=== PATIENT | female | born 1955 | race Caucasian/White ===

== ENCOUNTER → 2018-06-24 08:42 | Outpatient (CLI) | payer OTHER, SELFPAY ==
--- NOTE | 2018-06-24 08:43 | DI.MG.S_ITS ---
BILATERAL DIGITAL SCREENING MAMMOGRAM 3D/2D WITH CAD: 06/24/2018 CLINICAL: Routine screening. Comparison is made to exam dated: 12/17/2015 mammogram - [facility]. The tissue of both breasts is heterogeneously dense. This may lower the sensitivity of mammography. Current study was also evaluated with a Computer Aided Detection (CAD) system. No significant masses, calcifications, or other findings are seen in either breast. There has been no significant interval change. IMPRESSION: NEGATIVE There is no mammographic evidence of malignancy. A 1 year screening mammogram is recommended. This exam was interpreted at Station ID: [id number]. NOTE: For mammograms, a report in lay terms will be sent to the patient. Approximately 15% of breast malignancies will not be visualized mammographically. In the management of a palpable breast mass, a negative mammogram must not discourage biopsy of a clinically suspicious lesion. Electronically Signed By: Remberto knowles/andres:06/25/2018 07:48:24 letter sent: Normal Exam ACR BI-RADS Category 1: Negative 3341F
== END ==
PROVIDERS: PCP Family Medicine; Visit Provider Family Medicine
DX: Z12.31 Encounter for screening mammogram for malignant neoplasm of breast (principal)
CPT/HCPCS: 77063; 77067

== ENCOUNTER 2018-06-30 18:19 | Emergency (ER) | payer OTHER, SELFPAY ==
[2018-06-30 18:46] VITALS: BP 149/81; PULSE 80; RESP 18; TEMP 36.7; O2SAT 100
[2018-06-30 20:11] VITALS: BP 147/97; PULSE 82; RESP 18; O2SAT 100
--- NOTE | 2018-06-30 20:23 | ED.HA ---
HPI - Headache General Chief Complaint: Headache Stated Complaint: PAIN OVER RIGHT EYE/SENT BY WALK IN Time Seen by Provider: 06/30/18 20:19 Source: patient and family Mode of arrival: ambulatory Limitations: no limitations History of Present Illness HPI Narrative: Patient is a 62-year-old female who presents with all right eye headache ongoing for the last 10 days. She says she notices it mostly at daytime during work. 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 She feels like it is numb. She denies any blurry vision or double vision. She has been taking some ibuprofen for it which she says does not really help. She does not notice it at night. She denies any weakness the numbness or tingling. No rash. She does not typically get headaches. Tonight it seemed to be continually bothering her and she wanted to know what is going on. Initially seen at the walk-in clinic and referred to the ED for further evaluation and workup. MD Complaint: headache Related Data Home Medications Medication Instructions Recorded Confirmed aspirin #0 07/13/17 06/30/18 cyanocobalamin (vitamin B-12) 1,000 mcg IM MONTHLY #0 07/13/17 06/30/18 [Vitamin B-12] Previous Rx's Medication Instructions Recorded estradiol [Vagifem] 10 mcg VG QWEEK #60 tab 07/13/17 bupropion HCl 75 mg PO BID #120 tab 01/01/18 triamcinolone acetonide 0.1 % 1 applictn TOP DAILY #15 gram 04/05/18 topical cream cyclobenzaprine 10 mg tablet 10 mg PO TID PRN #30 tab 05/30/18 meloxicam 15 mg tablet 15 mg PO DAILY #30 tab 05/30/18 Allergies Allergy/AdvReac Type Severity Reaction Status Date / Time Penicillins [PENICILLINS] Allergy Unknown Verified 05/31/18 08:39 Sulfa (Sulfonamide Allergy Unknown Verified 05/31/18 08:39 Antibiotics) [SULFA (SULFONAMIDE ANTIBIOTICS)] Review of Systems Review of Systems All systems reviewed & are unremarkable except as noted in HPI and below Constitutional Denies chills, Denies fever(s), Denies lethargy and Denies weakness Eyes Reports as per HPI Cardiovascular Denies chest pain, Denies irregular heart rhythm, Denies lightheadedness, Denies palpitations, Denies dyspnea, Denies dyspnea on exertion and Denies orthopnea Respiratory Denies cough, Denies dyspnea, Denies dyspnea on exertion and Denies wheezing Gastrointestinal Gastrointestinal: Denies abdominal pain, Denies change in bowel habits, Denies diarrhea, Denies nausea and Denies vomiting Musculoskeletal Denies back pain, Denies muscle weakness, Denies numbness and Denies tingling Integumentary/Breasts Denies pruritus, Denies erythema, Denies rash and Denies wounds Neurologic Denies numbness, Denies tingling and Denies weakness Endocrine Denies palpitations Allergic/Immunologic Denies wheezing FORMERLY [facility] Medical History Anxiety (Chronic) Chronic cough (Chronic) Crohn's disease (Chronic 1971) Hearing loss (Chronic 2008) Psoriasis (Chronic) Shoulder pain (Chronic 1994) Tinnitus (Chronic) Kidney stones (Resolved 1999) Plantar warts (Resolved) Surgical History Anesthesia complication (Resolved) History of bowel resection (Resolved 1992) History of extraction of renal calculus (Resolved) Status post delivery (Resolved 1987) Status post tubal ligation (Resolved 1989) Family History Mother Age: 87 Heart valve disease Diabetes mellitus Brother Cancer of kidney Father Alzheimer's disease Social History marital status: Smoking Status: Former smoker Exam Initial Vital Signs Initial Vital Signs: Vital Signs Temperature 98.0 F 06/30/18 18:46 Pulse Rate 80 06/30/18 18:46 Respiratory Rate 18 06/30/18 18:46 Blood Pressure 149/81 H 06/30/18 18:46 Pulse Oximetry 100 06/30/18 18:46 Const General: cooperative and well developed Nutritional Appearance: well nourished Orientation: alert, awake, oriented x3 and not confused Eyes General: appearance normal, both eyes and all related structures Eyelids: eyelids normal Conjunctivae: conjunctivae normal Sclera: sclerae normal Pupils: PERRL EOM: EOM intact bilaterally Neck Neck: normal visual inspection, trachea midline, No lymphadenopathy, No midline deformity and No JVD Lymphatic: No lymphedema Chest Chest: normal inspection of the chest Resp Effort & Inspection: normal respiratory effort, able to speak in complete sentences, no respiratory distress and no use of accessory muscles Auscultation: clear to auscultation bilaterally, no rales, no rhonchi and no wheezes Cardio Rate: regular rate Rhythm: regular rhythm Heart Sounds: no click, no gallops, no murmurs and no rubs Pulses: normal peripheral pulses GI Inspection: non-distended Palpation: soft, no hepatosplenomegaly, No guarding, No pulsatile mass and No tender Auscultation: normal bowel sounds Skin General: no rashes or lesions noted, No jaundice and No petechiae Neuro General: alert, oriented x3, gait normal and no focal motor deficits Speech: speech normal Scores NIH Stroke Scale Level of Conciousness: Alert, keenly responsive Ask month/age: Answers both questions correctly. Open/close eyes, close hand: Performs both tasks correctly Best gaze horizontal: Normal Visual levi: No visual loss Facial palsy: Normal symetrical movement Left arm drift: No drift for full 10 sec Right arm drift: No drift for full 10 sec Left leg drift: No drift for full 10 sec Right leg drift: No drift for full 10 sec Limb ataxia: Absent Sensory on face/arms/legs: Normal, no sensory loss Best language: No aphasia, normal Dysarthria: Normal Extinction or inattention: No abnormality Total NIH Stroke scale score: 0 Course Orders Ordered: ED Orders 06/30/18 20:32 CT head/brain wo con Stat 06/30/18 21:05 Basic Metabolic Panel Stat Complete Blood Count AUTO DIFF Stat Discontinued Medications Ketorolac Tromethamine (Toradol) 30 mg IV NOW ONE Stop: 06/30/18 20:33 Vital Signs - 8 hr 06/30/18 20:11 06/30/18 21:57 Pulse Rate 82 79 Respiratory Rate 18 18 Blood Pressure [Right Arm] 147/97 H 137/88 H Pulse Oximetry 100 97 MDM - Headache Lab Data Attestation: I reviewed the patient's lab results. Result diagrams: 06/30/18 21:05 06/30/18 21:05 Lab Results 06/30/18 06/30/18 Range/Units 21:05 21:05 WBC 7.5 (4.5-11.0) X10^3/uL RBC 4.45 (4.0-5.2) X10^6/uL Hgb 13.8 (12.0-16.0) g/dL Hct 39.4 (36-46) % MCV 88.5 (80-100) fL MCH 31.0 (26-34) PG MCHC 35.1 (30-36) % RDW 12.6 (11.6-14.8) % Plt Count 253 (150-400) X10^3/uL Neut % (Auto) 54.7 (50-75) % Lymph % (Auto) 31.9 (25-40) % [place] % (Auto) 8.4 (3-14) % Eos % (Auto) 4.0 (2-4) % Baso % (Auto) 1.0 (0-2) % Neut # (Auto) 4100 (1994-3123) /uL Sodium 141 (137-145) mmol/L Potassium 3.9 (3.4-5.1) mmol/L Chloride 104 (98-107) mmol/L Carbon Dioxide 28 (22-32) mmol/L BUN 18 H (7-17) mg/dL Creatinine 0.60 (0.52-1.04) mg/dL Estimated GFR > 60.0 (>60) mL/min BUN/Creatinine Ratio 30.0 H (6-22) Glucose 95 (80-110) mg/dL Calcium 9.8 (8.4-10.2) mg/dL Imaging Data CT scan - head: Radiologist's impression: PROCEDURE: CT HEAD/BRAIN WO CON INDICATIONS: new onset headaches right side for 10 days TECHNIQUE: Noncontrast 4.5 mm thick angled axial sections acquired from the foramen magnum to the vertex, with coronal and sagittal reformats. For radiation dose reduction, the following was used: automated exposure control, adjustment of mA and/or kV according to patient size. COMPARISON: None. FINDINGS: Image quality: Excellent. CSF spaces: Basal cisterns are patent. No extra-axial fluid collections. The ventricles are symmetric in size and shape. Brain: No intracranial bleeds or masses. There is cerebral volume loss for age, with resultant ventricular and sulcal prominence. There are periventricular and deep white matter chronic small vessel ischemic changes. There is intracranial internal carotid artery atherosclerosis. Skull and face: Calvarium and visualized facial bones appear intact, without suspicious lesions. Sinuses: Visualized sinuses and mastoids are clear. IMPRESSION: No acute intracranial disease process. MDM Narrative Medical decision making narrative: Patient refused Toradol. She appears nontoxic awake alert alert and talking. Blood work head CT within normal limits. No focal deficits. 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 This may be an ocular migraine which then resolved mostly when she gets home. I have recommended limiting screen time and taking Tylenol and/or ibuprofen if needed especially at work. Discharge Plan Departure Patient Disposition: Home, Self-Care Clinical Impression: Headache Discharge Date/Time: 06/30/18 22:14 Interventions: ED Discharge Assessment Last Done: 06/30/18 22:13 Instructions: Tension Headache, DI for Headache Activity Restrictions/Additional Instructions: *You have been diagnosed with headache *What to do: Headache may be related to on working and computer screens try to limit screen time if possible. Also recommend taking Tylenol and/or ibuprofen if needed for pain *Continue to take medications as directed Take Tylenol and/or ibuprofen if needed for pain *Follow up with your primary care provider in 2-3 days *Return to ER if you should have worsening headache, increased weakness, vision changes speech difficulty or any new, worsening or concerning symptoms Prescriptions: No Action triamcinolone acetonide 0.1 % cream 1 applictn TOP DAILY Qty: 15 RF: 0 cyclobenzaprine 10 mg tablet 10 mg PO TID PRN (Reason: muscle spasm) Qty: 30 RF: 0 meloxicam [Mobic] 15 mg tablet 15 mg PO DAILY Qty: 30 RF: 0 cyanocobalamin (vitamin B-12) [Vitamin B-12] 1,000 MCG/1 ML drops 1,000 mcg IM MONTHLY Qty: 0 RF: 0 aspirin 81 MG tablet,delayed release (DR/EC) Qty: 0 RF: 0 estradiol [Vagifem] 10 MCG tablet 10 mcg VG QWEEK Qty: 60 RF: 1 bupropion HCl 75 MG tablet 75 mg PO BID Qty: 120 RF: 0 Referrals: Vanessa Aguilar MD [Primary Care Provider] -
--- NOTE | 2018-06-30 20:32 | DI.CT.S_ITS ---
PROCEDURE: CT HEAD/BRAIN WO CON INDICATIONS: new onset headaches right side for 10 days TECHNIQUE: Noncontrast 4.5 mm thick angled axial sections acquired from the foramen magnum to the vertex, with coronal and sagittal reformats. For radiation dose reduction, the following was used: automated exposure control, adjustment of mA and/or kV according to patient size. COMPARISON: None. FINDINGS: Image quality: Excellent. CSF spaces: Basal cisterns are patent. No extra-axial fluid collections. The ventricles are symmetric in size and shape. Brain: No intracranial bleeds or masses. There is cerebral volume loss for age, with resultant ventricular and sulcal prominence. There are periventricular and deep white matter chronic small vessel ischemic changes. There is intracranial internal carotid artery atherosclerosis. Skull and face: Calvarium and visualized facial bones appear intact, without suspicious lesions. Sinuses: Visualized sinuses and mastoids are clear. IMPRESSION: No acute intracranial disease process. Dictated by: Francia Mares MD, PhD on 06/30/2018 at 21:01 Approved by: Francia Mares MD, PhD on 06/30/2018 at 21:03
[2018-06-30 21:14] LABS: Add Manual Diff / Slide Review NO; Hematocrit 39.4 % (36-46); Hemoglobin 13.8 g/dL (12.0-16.0); Lymphocytes Percent Auto 31.9 % (25-40); Mean Corpuscular HGB Conc 35.1 % (30-36); Mean Corpuscular Volume 88.5 fL (80-100); Monocytes Percent Auto 8.4 % (3-14); Neutrophils Absolute Auto 4100 /uL (3000-5900); Neutrophils Percent Auto 54.7 % (50-75); Platelet Count 253 X10^3/uL (150-400); Red Blood Cell Count 4.45 X10^6/uL (4.0-5.2); Red Cell Distribution Width 12.6 % (11.6-14.8); White Blood Cell Count 7.5 X10^3/uL (4.5-11.0)
--- NOTE | 2018-06-30 21:16 | PC.NURSE ---
Pt declined toradol at this time. Provider aware.
[2018-06-30 21:36] LABS: Blood Urea Nitrogen 18 mg/dL (7-17); Calcium 9.8 mg/dL (8.4-10.2); Carbon Dioxide 28 mmol/L (22-32); Chloride 104 mmol/L (98-107); Estimated Glomerular Filt Rate > 60.0 mL/min (>60); Glucose 95 mg/dL (80-110); HEMOLYSIS < 15 (0-50); Potassium 3.9 mmol/L (3.4-5.1); Sodium 141 mmol/L (137-145)
[2018-06-30 21:57] VITALS: BP 137/88; PULSE 79; RESP 18; O2SAT 97
== END 2018-06-30 22:14 | disposition home or self-care (01) ==
PROVIDERS: Emergency Provider Emergency Medicine; PCP Family Medicine
DX: R51 Headache (principal)
CPT/HCPCS: 36591; 70450; 80048; 85025; 99282; 99284

== ENCOUNTER → 2018-08-26 | Outpatient (CLI) | payer OTHER, SELFPAY | LOC: LAB 11:11 | PROVIDERS: PCP Family Medicine; Visit Provider Registered Nurse | DX: R39.9 Unspecified symptoms and signs involving the genitourinary system (principal) | CPT/HCPCS: 87077; 87086 ==

== ENCOUNTER → 2019-03-18 12:21 | Outpatient (CLI) | payer OTHER, SELFPAY ==
--- NOTE | 2019-03-18 | DI.US.S_ITS ---
PROCEDURE: US RENAL COMPLETE INDICATIONS: KIDNEY STONES TECHNIQUE: Real-time scanning was performed of the kidneys and bladder, with image documentation. COMPARISON: [facility], US, RENAL COMPLETE, 03/02/2018, 14:24. FINDINGS: Kidneys: Kidneys are normal in size. Right kidney measures 10.8 cm long; left kidney measures 10.6 cm long. Right renal cortical thickness is 1.2 cm; left renal cortical thickness is 1.4 cm. Renal cortical echotexture is normal. No hydronephrosis or nephrolithiasis except for a 7 mm calculus at the left kidney, nonobstructive. No suspicious solid mass lesions. Bladder: Pre-void bladder volume is 274 mL. Post-void residual is 9.0 mL. Pre-void images demonstrate no intraluminal masses or stones. On pre-void images, bilateral ureteral jets are noted with color Doppler interrogation. (Of note, ureteral jets may not be detectable in up to 25% of cases due to insufficient differences in specific gravity between ureteral and bladder urine). Miscellaneous: No free pelvic fluid. IMPRESSION: Again noted is a calculus that is nonobstructive at the collecting system of the left kidney, measuring only 7 mm in dimension, and no hydronephrosis or nephrolithiasis is seen elsewhere. Normal bladder function. Dictated by: Roni Marsh M.D. on 03/18/2019 at 13:43 Approved by: Roni Marsh M.D. on 03/18/2019 at 13:45
== END ==
PROVIDERS: PCP Family Medicine; Visit Provider Urology
DX: N20.0 Calculus of kidney (principal)
CPT/HCPCS: 76770

== ENCOUNTER → 2019-03-25 09:43 | Outpatient (CLI) | payer OTHER, SELFPAY | PROVIDERS: PCP Family Medicine; Visit Provider Family Medicine | DX: Z13.820 Encounter for screening for osteoporosis (principal); M85.88 Other specified disorders of bone density and structure, other site; Z78.0 Asymptomatic menopausal state; Z82.62 Family history of osteoporosis; Z87.891 Personal history of nicotine dependence | CPT/HCPCS: 77080 ==

== ENCOUNTER → 2019-04-26 10:46 | Outpatient (CLI) | payer OTHER, SELFPAY ==
[2019-04-26 14:10] LABS: Vitamin B12 263 pg/mL (239-931)
[2019-04-26 17:06] LABS: Vitamin D 25 Hydroxy (D3) 20.8 ng/mL (30.0-100.0)
== END ==
PROVIDERS: PCP Family Medicine; Visit Provider Family Medicine
DX: E53.8 Deficiency of other specified B group vitamins (principal); E55.9 Vitamin D deficiency, unspecified
CPT/HCPCS: 36415; 82306; 82607

== ENCOUNTER → 2019-08-09 15:28 | Outpatient (CLI) | payer OTHER, SELFPAY ==
[2019-08-09 18:00] LABS: Bacteria Urine None Seen; WBC Urine None Seen (0-5/HPF)
[2019-08-09 18:18] LABS: Appearance Urine UA CLEAR; Bilirubin Urine UA NEGATIVE (NEGATIVE); Color Urine UA YELLOW; Glucose Urine UA NEGATIVE (Negative); Ketones Urine UA NEGATIVE (NEGATIVE); Leukocyte Esterase Urine UA NEGATIVE (NEGATIVE); Nitrite Urine UA NEGATIVE (Negative); Occult Blood Urine UA 1+ (Negative); Protein Urine UA NEGATIVE (Negative); Specific Gravity Urine UA 1.025 (1.000-1.035); Urobilinogen Urine UA 0.2 E.U./dL (0.2)
[2019-08-09 18:28] LABS: Calcium Oxalate Crystals Urine Moderate; Culture Indicated Urine Cult Not Indicated; RBC Urine 5-10/HPF (0-5/HPF); Squamous Epithelial Cell Urine 5-10 /HPF (0-5/HPF)
== END ==
PROVIDERS: PCP Family Medicine; Visit Provider Hospitalist
DX: M54.9 Dorsalgia, unspecified (principal)
CPT/HCPCS: 81001

== ENCOUNTER → 2019-08-12 11:41 | Outpatient (CLI) | payer OTHER, SELFPAY ==
--- NOTE | 2019-08-12 | DI.RAD.S_ITS ---
PROCEDURE: XR KUB INDICATIONS: left upper quandrant pain TECHNIQUE: One view of the abdomen acquired. COMPARISON: None. FINDINGS: Surgical changes and devices: Surgical staple line projecting in the right abdomen. Bowel: Bowel gas pattern is nonobstructive although dense stool projects in the rectal vault and sigmoid colon. Soft tissues: No suspicious abdominal calcifications. Visualized solid organ contours appear normal in size. Bones: No suspicious bony lesions. IMPRESSION: No specific evidence of bowel obstruction seen at this time although if the patient's symptoms do not improve, continued surveillance with abdominal series radiographs could be performed. Dense stool projects in the rectal vault suggestive of fecal impaction/constipation. Dictated by: Prashanth Mora M.D. on 08/12/2019 at 15:16 Approved by: Prashanth Mora M.D. on 08/12/2019 at 15:17
[2019-08-12 12:26] LABS: Appearance Urine UA CLEAR; Bilirubin Urine UA NEGATIVE (NEGATIVE); Color Urine UA YELLOW; Glucose Urine UA NEGATIVE (Negative); Ketones Urine UA NEGATIVE (NEGATIVE); Leukocyte Esterase Urine UA NEGATIVE (NEGATIVE); Nitrite Urine UA NEGATIVE (Negative); Occult Blood Urine UA 1+ (Negative); Protein Urine UA NEGATIVE (Negative); Specific Gravity Urine UA <=1.005 (1.000-1.035); Urobilinogen Urine UA 0.2 E.U./dL (0.2)
[2019-08-12 13:01] LABS: pH Urine UA 5.5 (4.5-8.0)
[2019-08-12 13:05] LABS: Bacteria Urine None Seen; Culture Indicated Urine Cult Not Indicated; RBC Urine 0-1/HPF (0-5/HPF); Squamous Epithelial Cell Urine None Seen (0-5/HPF); WBC Urine 0-1/HPF (0-5/HPF)
== END ==
PROVIDERS: PCP Urology; Visit Provider Urology
DX: N20.0 Calculus of kidney (principal); R10.12 Left upper quadrant pain
CPT/HCPCS: 74018; 81001

== ENCOUNTER → 2019-08-22 07:36 | Outpatient (CLI) | payer OTHER, SELFPAY ==
--- NOTE | 2019-08-22 07:37 | DI.MG.S_ITS ---
BILATERAL DIGITAL SCREENING MAMMOGRAM 3D/2D WITH CAD: 08/22/2019 CLINICAL: Routine screening. Comparison is made to exams dated: 06/24/2018 mammogram - [facility] and 12/17/2015 mammogram - [facility]. The tissue of both breasts is heterogeneously dense. This may lower the sensitivity of mammography. Current study was also evaluated with a Computer Aided Detection (CAD) system. No significant masses, calcifications, or other findings are seen in either breast. There has been no significant interval change. IMPRESSION: NEGATIVE There is no mammographic evidence of malignancy. A 1 year screening mammogram is recommended. This exam was interpreted at Station ID: [id number]. NOTE: For mammograms, a report in lay terms will be sent to the patient. Approximately 15% of breast malignancies will not be visualized mammographically. In the management of a palpable breast mass, a negative mammogram must not discourage biopsy of a clinically suspicious lesion. Electronically Signed By: Mary العراقي/andres:08/22/2019 09:28:18 letter sent: Normal Exam ACR BI-RADS Category 1: Negative 3341F
== END ==
PROVIDERS: PCP Urology; Visit Provider Family Medicine
DX: Z12.31 Encounter for screening mammogram for malignant neoplasm of breast (principal)
CPT/HCPCS: 77063; 77067

== ENCOUNTER 2019-10-19 08:02 | Day surgery (SDC) | payer OTHER, SELFPAY ==
--- NOTE | 2019-10-19 | PATH_ITS ---
[facility] Accession Number: [id number] . 01 Material submitted: . PART A: colon - TRANSVERSE COLON BIOPSY PART B: colon - LEFT COLON BIOPSY . 01 Clinical history: . COLONOSCOPY . 02 Diagnosis: A-B. Transverse Colon, Left Colon, Biopsies: Colonic mucosa with no significant diagnostic abnormality. Negative for active inflammation, granulomas, dysplasia and malignancy. MRV 10/20/2019 1258 Local . 02 Electronically signed: . Diandra Bauer MD, Pathologist NPI- [id number] . 01 Gross description: . Part A: TRANSVERSE COLON BIOPSY: Received in formalin are multiple fragment(s) of hernandez, soft tissue measuring 0.1 x 0.1 x 0.1 cm to 0.3 x 0.2 x 0.2 cm submitted entirely in 1 cassette(s) Part B: LEFT COLON BIOPSY: Received in formalin are multiple fragment(s) of hernandez, soft tissue measuring 0.1 x 0.1 x 0.1 cm to 0.3 x 0.2 x 0.2 cm submitted entirely in 1 cassette(s) /[facility] 10/19/2019 1920 Local . 02 Pathologist provided ICD-10: K50.80 . 02 CPT . 652960, 149816 Performed at: 01 [facility] [address], [place], [place] [id number] MD Romeo Hatch MD Phone: [phone] Performed at: 02 [facility] [address] [place], [place] [id number] MD Diandra Bauer MD Phone: [phone]
[2019-10-19 08:21] VITALS: BP 146/78; PULSE 96; RESP 15; TEMP 36.4; O2SAT 100; BMI 21.5
[2019-10-19] MEDS: SODIUM CHLORIDE 0.9% 1,000 ML 21 ML IV (08:36)
--- NOTE | 2019-10-19 09:16 | PM.HP.1 ---
History of Present Illness History of Present Illness Chief complaint: [id number] COLONOSCOPY Patient History Family & Social History Social History: household members spouse Tobacco & Substance use: Smoking Status Former smoker alcohol intake frequency a few times a week Substance Use Type does not use Meds Home Medications and Allergies Home Medications Medication Instructions Recorded Confirmed Type Vitamin B-12 1,000 mcg IM MONTHLY #0 07/13/17 10/19/19 History aspirin 81 mg PO DAILY #0 07/13/17 10/19/19 History estradiol See Rx Instructions .ROUTE DAILY 05/03/19 10/19/19 Rx #42.5 gram estradiol 10 mcg vaginal tablet 10 mcg VAG DAILY #30 tab 05/03/19 10/19/19 Rx bupropion HCl 75 mg tablet 75 mg PO BID #120 tab 09/01/19 10/19/19 Rx Allergies Allergy/AdvReac Type Severity Reaction Status Date / Time Penicillins [PENICILLINS] Allergy Unknown Hives Verified 10/19/19 08:16 Sulfa (Sulfonamide Allergy Unknown Hives Verified 10/19/19 08:16 Antibiotics) [SULFA (SULFONAMIDE ANTIBIOTICS)] Exam Vital Signs (past 8 hours): - 10/19/19 08:21 Temperature 97.5 F L Pulse Rate 96 H Respiratory Rate 15 Blood Pressure 146/78 H Pulse Oximetry 100 Oxygen Delivery Method Room Air Oxygen Flow Rate 0 Narrative Exam Narrative: Oropharynx free of lesions Chest clear to auscultation percussion Cardiac exam reveals no S3 or murmur Assessment & Plan Assessment & Plan narrative: History of Crohn's disease with increasing constipation status post ileocolonic anastomosis years ago. Surveillance for colon cancer screening in addition to checking anastomosis for stricture ring. On no medications recurrence disease Risks, benefits, alternatives have been explained. Further recommendations will follow the results of the study.
--- NOTE | 2019-10-19 09:18 | PM.OP.ENDO ---
Operative Date/Time/Diagnoses Date of procedure: 10/19/19 Time of procedure: 09:18 Pre-op diagnosis: See indication and findings Procedure & Clinicians Study performed: Colonoscopy Same procedure as scheduled: Yes Indications: History of Crohn's disease and recent history of increasing constipation status post ileocolonic anastomosis. Need for evaluation of anastomosis and versed screening for colon cancer since diagnosis. Surgeon: Effie Porter Procedure Notes Procedure in detail: After informed consent was obtained the patient was placed in left lateral decubitus position. The video colonoscope was introduced the rectum slowly advanced to the cecum. On slow withdrawal mucosa was carefully examined. Preparation was good. The scope was removed. The patient tolerated procedure well. Blood loss none Complications none Sedation Total sedation time 20 minutes Versed 7 mg fentanyl 1 micro g IV titration Findings 1. Normal colonoscopy to ileocolonic anastomosis. Anastomosis completely normal with no evidence of Crohn's disease. 2. Surveillance biopsies were taken to every 10 cm and placed in to 2 bottles, transverse and left colon. Follow-up with the patient with pathology. It is unclear her distal colon is over been involved with Crohn's disease in which case she might not need every 2 year follow-up. Further review of records will be warranted.
[2019-10-19] MEDS: fentaNYL 100 MCG/2 ML INJ IV (09:35)
[2019-10-19] MEDS: MIDAZOLAM 5 MG/5 ML VIAL IV (09:43)
[2019-10-19 09:44] VITALS: BP 107/59; PULSE 87; RESP 12; TEMP 37; O2SAT 98
[2019-10-19 09:49] VITALS: BP 103/68; PULSE 92; RESP 14; O2SAT 98
[2019-10-19 09:54] VITALS: BP 115/64; PULSE 93; RESP 15; O2SAT 99
[2019-10-19 10:05] VITALS: BP 114/66; PULSE 60; RESP 16; TEMP 36.6; O2SAT 100
== END 2019-10-19 10:16 | disposition home or self-care (01) ==
PROVIDERS: PCP Family Medicine; Visit Provider Internal Medicine Gastroenterology
PROC: 0DJD8ZZ Inspection of Lower Intestinal Tract, Via Natural or Artificial Opening Endoscopic (ICD-10-PCS; CPT 45378; principal; 2019-10-19 14:00)
DX: Z12.11 Encounter for screening for malignant neoplasm of colon (principal); K59.00 Constipation, unspecified; Z87.19 Personal history of other diseases of the digestive system; F41.9 Anxiety disorder, unspecified
CPT/HCPCS: 45380; J2250; J3010

== ENCOUNTER → 2019-10-26 10:32 | Outpatient (CLI) | payer OTHER, SELFPAY ==
--- NOTE | 2019-10-26 | DI.US.S_ITS ---
PROCEDURE: US RENAL COMPLETE INDICATIONS: CALCULUS OF KIDNEY TECHNIQUE: Real-time scanning was performed of the kidneys and bladder, with image documentation. COMPARISON: [facility], , RENAL COMPLETE, 03/18/2019, 13:01. [facility], , RENAL COMPLETE, 03/02/2018, 14:24. FINDINGS: Kidneys: Kidneys are normal in size. Right kidney measures 11.0 cm long; left kidney measures 10.1 cm long. Right renal cortical thickness is 0.9 cm; left renal cortical thickness is 1.0 cm. Renal cortical echotexture is normal. No hydronephrosis or nephrolithiasis. No suspicious solid mass lesions. Bladder: Pre-void bladder volume is 270 mL. Post-void residual is 16 mL. Pre-void images demonstrate no intraluminal masses or stones. On pre-void images, bilateral ureteral jets are noted with color Doppler interrogation. (Of note, ureteral jets may not be detectable in up to 25% of cases due to insufficient differences in specific gravity between ureteral and bladder urine). Miscellaneous: No free pelvic fluid. IMPRESSION: No hydronephrosis or nephrolithiasis found, normal bladder function. No suspected urinary tract obstruction. Dictated by: Roni Marsh M.D. on 10/26/2019 at 12:59 Approved by: Roni Marsh M.D. on 10/26/2019 at 13:14
[2019-10-26 12:26] LABS: Alanine Aminotransferase 22 IU/L (<35); Albumin 4.6 g/dL (3.5-5.0); Albumin Globulin Ratio 1.8 (1.0-2.8); Alkaline Phosphatase 93 U/L (38-126); Aspartate Aminotransferase 27 IU/L (14-36); Bilirubin Total 1.4 mg/dL (0.2-1.3); Bilirubin Unconjugated 1.2 mg/dL (0.0-1.1); Globulin 2.6 g/dL (1.7-4.1); HEMOLYSIS < 15 (0-50); Total Protein 7.2 g/dL (6.3-8.2)
== END ==
PROVIDERS: Internal Medicine Gastroenterology; PCP Family Medicine; Referring Provider Internal Medicine Gastroenterology; Visit Provider Urology
DX: N20.0 Calculus of kidney (principal); K50.80 Crohn's disease of both small and large intestine without complications
CPT/HCPCS: 36415; 76770; 80076

== ENCOUNTER → 2020-03-27 09:53 | Outpatient (CLI) | payer OTHER, SELFPAY ==
[2020-03-29 06:14] LABS: COVID19 Sendout Not Detected (Not Detected)
== END ==
PROVIDERS: PCP Family Medicine; Visit Provider Registered Nurse
DX: Z11.9 Encounter for screening for infectious and parasitic diseases, unspecified (principal)
CPT/HCPCS: 87635

== ENCOUNTER → 2020-08-09 09:27 | Outpatient (CLI) | payer OTHER, SELFPAY ==
--- NOTE | 2020-08-29 08:37 | PM.CARDMON.1 ---
Electrical Research Engineer Report Referral & Results Date Patient Seen: 08/09/20 Requesting provider: Vanessa Aguilar Indication: Palpitations Duration of monitoring (days): 6 Diary information: There were 4 patient triggered events and 4 patient diary entries. All of these events were associated with sinus rhythm alone Data: Minimum heart rate identified was 55 beats per minute at 01:30 on 08/14/2020 Maximum heart rate identified was 142 beats per minute at 15:54 on 08/11/2020 Less than 1% of identified beats or either ventricular supraventricular ectopic in origin Impression: Normal monitor technician without evidence of any significant dysrhythmia. Patient's reported symptoms are not associated with any dysrhythmia on this study.
== END ==
PROVIDERS: Family Provider Family Medicine; PCP Family Medicine; Referring Provider Family Medicine; Visit Provider Family Medicine
DX: R00.2 Palpitations (principal)
CPT/HCPCS: 0296T; 0298T

== ENCOUNTER → 2020-09-05 07:10 | Outpatient (CLI) | payer OTHER, SELFPAY ==
[2020-09-05 08:50] LABS: Add Manual Diff / Slide Review NO; Basophils Absolute Auto 100 /uL (0-100); Basophils Percent Auto 1.3 % (0-2); Eosinophils Absolute Auto 300 /uL (0-450); Eosinophils Percent Auto 4.8 % (2-4); Hematocrit 37.5 % (36-46); Hemoglobin 12.9 g/dL (12.0-16.0); Lymphocytes Absolute Auto 1700 /uL (1100-4500); Lymphocytes Percent Auto 28.7 % (25-40); Mean Corpuscular HGB Conc 34.5 % (30-36); Mean Corpuscular Hemoglobin 30.4 PG (26-34); Mean Corpuscular Volume 88.1 fL (80-100); Monocytes Absolute Auto 500 /uL (0-900); Monocytes Percent Auto 8.2 % (3-14); Neutrophils Absolute Auto 3400 /uL (1500-7000); Platelet Count 284 X10^3/uL (150-400); Red Blood Cell Count 4.25 X10^6/uL (4.0-5.2); White Blood Cell Count 5.9 X10^3/uL (4.5-11.0)
[2020-09-05 09:27] LABS: Alanine Aminotransferase 28 IU/L (<35); Albumin 4.4 g/dL (3.5-5.0); Albumin Globulin Ratio 1.7 (1.0-2.8); Alkaline Phosphatase 80 U/L (38-126); Aspartate Aminotransferase 28 IU/L (14-36); BUN Creatinine Ratio 20.3 (6-22); Bilirubin Total 2.4 mg/dL (0.2-1.3); Blood Urea Nitrogen 14 mg/dL (7-17); Calcium 9.5 mg/dL (8.4-10.2); Carbon Dioxide 26 mmol/L (22-32); Chloride 104 mmol/L (98-107); Cholesterol 205 mg/dL (140-199); Estimated Glomerular Filt Rate > 60.0 mL/min (>60); Globulin 2.6 g/dL (1.7-4.1); Glucose 88 mg/dL (80-110); HDL Cholesterol 68 mg/dL (40-60); HEMOLYSIS < 15 (0-50); LDL Cholesterol Calculated 100 mg/dL (<100); Potassium 4.5 mmol/L (3.4-5.1); Sodium 139 mmol/L (137-145); Triglycerides 187 mg/dL (35-150)
[2020-09-05 09:49] LABS: TSH w/ Reflex to FT4 2.45 uIU/mL (0.47-4.68)
== END ==
PROVIDERS: Family Provider Family Medicine; PCP Family Medicine; Referring Provider Family Medicine; Visit Provider Family Medicine
DX: R42 Dizziness and giddiness (principal); Z13.220 Encounter for screening for lipoid disorders
CPT/HCPCS: 36415; 80053; 80061; 84443; 85025

== ENCOUNTER → 2020-09-20 16:24 | Outpatient (CLI) | payer OTHER, SELFPAY ==
--- NOTE | 2020-09-20 | DI.MG.S_ITS ---
BILATERAL DIGITAL SCREENING MAMMOGRAM 3D/2D WITH CAD: 09/20/2020 CLINICAL: Routine screening. Comparison is made to exams dated: 08/22/2019 mammogram, 06/24/2018 mammogram - [facility], and 12/17/2015 mammogram - [facility]. The tissue of both breasts is heterogeneously dense. This may lower the sensitivity of mammography. Current study was also evaluated with a Computer Aided Detection (CAD) system. No significant masses, calcifications, or other findings are seen in either breast. There has been no significant interval change. IMPRESSION: NEGATIVE There is no mammographic evidence of malignancy. A 1 year screening mammogram is recommended. This exam was interpreted at Station ID: [id number]. NOTE: For mammograms, a report in lay terms will be sent to the patient. Approximately 15% of breast malignancies will not be visualized mammographically. In the management of a palpable breast mass, a negative mammogram must not discourage biopsy of a clinically suspicious lesion. Electronically Signed By: Navin bautista/andres:09/20/2020 16:58:23 letter sent: Normal Exam ACR BI-RADS Category 1: Negative 3341F
== END ==
PROVIDERS: Family Provider Family Medicine; PCP Family Medicine; Referring Provider Family Medicine; Visit Provider Family Medicine
DX: Z12.31 Encounter for screening mammogram for malignant neoplasm of breast (principal)
CPT/HCPCS: 77063; 77067

== ENCOUNTER → 2021-01-22 11:35 | Outpatient (CLI) | payer OTHER, SELFPAY ==
--- NOTE | 2021-01-22 | DI.RAD.S_ITS ---
PROCEDURE: XR CHEST 2V INDICATIONS: DYSPNEA ON EXERTION TECHNIQUE: 2 views of the chest were acquired. COMPARISON: None. FINDINGS: Surgical changes and devices: None. Lungs and pleura: Lungs are clear. No pleural effusions or pneumothorax. Mediastinum: Mediastinal contours are normal. Heart size is normal. Bones and chest wall: No suspicious bony abnormalities. Soft tissues appear unremarkable. IMPRESSION: No acute cardiopulmonary disease. Dictated by: Carol Walton M.D. on 01/22/2021 at 12:13 Approved by: Carol Walton M.D. on 01/22/2021 at 12:16
== END ==
PROVIDERS: Family Provider Family Medicine; PCP Family Medicine; Referring Provider Internal Medicine; Visit Provider Internal Medicine
DX: R06.00 Dyspnea, unspecified (principal)
CPT/HCPCS: 71046

== ENCOUNTER → 2021-02-15 08:29 | Outpatient (CLI) | payer OTHER, SELFPAY ==
[2021-02-15] MEDS: COVID-19 VACC #1, MRNA(MOD) 100 MCG/0.5 ML VIAL IM (08:36)
== END ==
PROVIDERS: Family Provider Family Medicine; PCP Family Medicine; Visit Provider Internal Medicine
DX: Z23 Encounter for immunization (principal)
CPT/HCPCS: 0011A; 91301

== ENCOUNTER → 2021-03-15 08:32 | Outpatient (CLI) | payer OTHER, SELFPAY ==
[2021-03-15] MEDS: COVID-19 VACC #2, MRNA(MOD) 100 MCG/0.5 ML VIAL IM (08:37)
== END ==
PROVIDERS: Family Provider Family Medicine; PCP Family Medicine; Visit Provider Internal Medicine
DX: Z23 Encounter for immunization (principal)
CPT/HCPCS: 0012A; 91301

== ENCOUNTER → 2021-09-24 15:59 | Outpatient (CLI) | payer OTHER, SELFPAY ==
--- NOTE | 2021-09-24 | DI.MG.S_ITS ---
BILATERAL DIGITAL SCREENING MAMMOGRAM 3D/2D WITH CAD: 09/24/2021 CLINICAL: Routine screening. Comparison is made to exams dated: 09/20/2020 mammogram, 08/22/2019 mammogram, and 06/24/2018 mammogram - [facility]. The tissue of both breasts is heterogeneously dense. This may lower the sensitivity of mammography. Current study was also evaluated with a Computer Aided Detection (CAD) system. There is a 1.5 cm x 1.3 cm x 1.2 cm oval mass with a microlobulated margin in the right breast at 12 o'clock middle depth 6 cm from the skin. No other significant masses, calcifications, or other findings are seen in either breast. IMPRESSION: INCOMPLETE: NEEDS ADDITIONAL IMAGING EVALUATION The 1.5 cm x 1.3 cm x 1.2 cm oval mass in the right breast is indeterminate. Additional views with possible ultrasound are recommended. This exam was interpreted at Station ID: [id number]. NOTE: For mammograms, a report in lay terms will be sent to the patient. Approximately 15% of breast malignancies will not be visualized mammographically. In the management of a palpable breast mass, a negative mammogram must not discourage biopsy of a clinically suspicious lesion. Electronically Signed By: Zachariah Caputo acr/:09/24/2021 16:23:23 letter sent: Additional Imaging Needed ACR BI-RADS Category 0: Incomplete 3340F
== END ==
PROVIDERS: Family Provider Family Medicine; PCP Family Medicine; Referring Provider Family Medicine; Visit Provider Family Medicine
DX: Z12.31 Encounter for screening mammogram for malignant neoplasm of breast (principal)
CPT/HCPCS: 77063; 77067

== ENCOUNTER → 2021-10-15 14:01 | Outpatient (CLI) | payer OTHER, SELFPAY ==
--- NOTE | 2021-10-15 14:03 | DI.MG.S_ITS ---
UNILATERAL RIGHT DIGITAL DIAGNOSTIC MAMMOGRAM 3D/2D WITH ADDITIONAL VIEWS: 10/15/2021 CLINICAL: Additional evaluation requested from prior study. Comparison is made to exams dated: 09/24/2021 mammogram, 09/20/2020 mammogram, and 08/22/2019 mammogram - [facility]. The tissue of right breast is heterogeneously dense. This may lower the sensitivity of mammography. There is a benign skin mole on the right breast at 12 o'clock in the anterior to middle depth that correlates with breast mole marker. This is the lesion indicated on screening mammogram as a breast mass. No significant masses, calcifications, or other findings are seen in the breast. IMPRESSION: BENIGN Screening mammography abnormality is found to be a skin mole when mole markers are placed. There is no mammographic evidence of malignancy. Return to annual mammogram screening schedule is recommended. Findings and recommendations were conveyed to the patient at time of exam. This exam was interpreted at Station ID: [id number]. NOTE: For mammograms, a report in lay terms will be sent to the patient. Approximately 15% of breast malignancies will not be visualized mammographically. In the management of a palpable breast mass, a negative mammogram must not discourage biopsy of a clinically suspicious lesion. Electronically Signed By: Brianda bonilla/:10/15/2021 14:58:35 letter sent: Normal Exam ACR BI-RADS Category 2: Benign Finding(s) 3342F
== END ==
PROVIDERS: Family Provider Family Medicine; PCP Family Medicine; Referring Provider Family Medicine; Visit Provider Family Medicine
DX: R92.8 Other abnormal and inconclusive findings on diagnostic imaging of breast (principal); D22.5 Melanocytic nevi of trunk
CPT/HCPCS: G0279

== ENCOUNTER → 2021-11-04 09:25 | Outpatient (CLI) | payer OTHER, SELFPAY ==
[2021-11-04 10:31] LABS: Erythrocyte Sedimentation Rate 11 MM/HR (0-20)
[2021-11-04 11:10] LABS: C-Reactive Protein Quant < 0.5 mg/dL (<1.0)
[2021-11-06 12:09] LABS: ANA Screen, IFA Negative (.)
== END ==
PROVIDERS: Family Provider Family Medicine; PCP Family Medicine; Referring Provider Family Medicine; Visit Provider Family Medicine
DX: R52 Pain, unspecified (principal)
CPT/HCPCS: 36415; 85651; 86038; 86140

== ENCOUNTER → 2022-03-04 11:44 | Outpatient (CLI) | payer OTHER, SELFPAY ==
--- NOTE | 2022-03-04 11:45 | DI.RAD.S_ITS ---
PROCEDURE: XR KUB INDICATIONS: renal calculi TECHNIQUE: One view of the abdomen acquired. COMPARISON: [facility], CR, XR KUB, 08/12/2019, 12:18. FINDINGS: Surgical changes and devices: None. Bowel: Bowel gas pattern is normal. Soft tissues: No suspicious abdominal calcifications. Visualized solid organ contours appear normal in size. Bones: No suspicious bony lesions. IMPRESSION: No visualized calcifications overlying the renal shadows. Significant overlying stool is noted which may obscure visualization. Dictated by: Veronika Prescott M.D. on 03/04/2022 at 12:32 Approved by: Veronika Prescott M.D. on 03/04/2022 at 12:32
== END ==
PROVIDERS: Family Provider Family Medicine; PCP Family Medicine; Referring Provider Urology; Visit Provider Urology
DX: N20.0 Calculus of kidney (principal)
CPT/HCPCS: 74018

== ENCOUNTER → 2022-06-04 07:01 | Outpatient (CLI) | payer OTHER, SELFPAY ==
[2022-06-04 08:31] LABS: Alanine Aminotransferase 16 IU/L (<35); Albumin 4.3 g/dL (3.5-5.0); Albumin Globulin Ratio 1.7 (1.0-2.8); Alkaline Phosphatase 81 U/L (38-126); Aspartate Aminotransferase 23 IU/L (14-36); BUN Creatinine Ratio 18.7 (6-22); Bilirubin Total 1.7 mg/dL (0.2-1.3); Blood Urea Nitrogen 14 mg/dL (7-17); Calcium 9.1 mg/dL (8.4-10.2); Carbon Dioxide 27 mmol/L (22-32); Chloride 107 mmol/L (98-107); Cholesterol 197 mg/dL (140-199); Estimated Glomerular Filt Rate > 60 mL/min (>60); Globulin 2.5 g/dL (1.7-4.1); Glucose 84 mg/dL (80-110); HDL Cholesterol 81 mg/dL (40-60); HEMOLYSIS < 15 (0-50); LDL Cholesterol Calculated 88 mg/dL (<100); Potassium 4.2 mmol/L (3.4-5.1); Sodium 139 mmol/L (137-145); Total Protein 6.8 g/dL (6.3-8.2); Triglycerides 142 mg/dL (35-150)
[2022-06-04 08:36] LABS: Creatinine Urine Random 103.4 mg/dL
[2022-06-04 08:41] LABS: Microalbumi Creatinin Ratio Ur 6.7 ug/mg CR (<30); Microalbumin Urine Random 0.7 mg/dL (0-1.6)
[2022-06-04 09:48] LABS: Hemoglobin A1C% w Est Avg Glu 5.2 % (4.0-6.0)
== END ==
PROVIDERS: Family Provider Family Medicine; PCP Family Medicine; Referring Provider Family Medicine; Visit Provider Family Medicine
DX: I10 Essential (primary) hypertension (principal); Z83.3 Family history of diabetes mellitus
CPT/HCPCS: 36415; 80053; 80061; 82043; 82570; 83036

== ENCOUNTER → 2022-11-03 08:32 | Outpatient (CLI) | payer OTHER, SELFPAY ==
--- NOTE | 2022-11-03 | DI.MG.S_ITS ---
BILATERAL DIGITAL SCREENING MAMMOGRAM 3D/2D WITH CAD: 11/03/2022 CLINICAL: Routine screening. Comparison is made to exams dated: 09/24/2021 mammogram, 09/20/2020 mammogram, 08/22/2019 mammogram, and 06/24/2018 mammogram - [facility]. Both breasts are heterogeneously dense, which may obscure small masses (category c / 51-75% glandular tissue). Current study was also evaluated with a Computer Aided Detection (CAD) system. No significant masses, calcifications, or other findings are seen in either breast. There has been no significant interval change. IMPRESSION: NEGATIVE There is no mammographic evidence of malignancy. A 1 year screening mammogram is recommended. Based on the Tyrer Cuzick model (a risk assessment model) the patient's lifetime risk is 11.9% and her 10 year risk is 5.6%. According to the ACR, ACS, and NCCN guidelines, an annual breast MRI exam along with mammogram is recommended if the patient's lifetime risk is 20% or greater. This exam was interpreted at Station ID: [id number]. NOTE: For mammograms, a report in lay terms will be sent to the patient. Approximately 15% of breast malignancies will not be visualized mammographically. In the management of a palpable breast mass, a negative mammogram must not discourage biopsy of a clinically suspicious lesion. Electronically Signed By: Too sanchez/andres:11/03/2022 10:14:30 letter sent: Normal Exam ACR BI-RADS Category 1: Negative 3341F
== END ==
PROVIDERS: Family Provider Family Medicine; PCP Family Medicine; Referring Provider Family Medicine; Visit Provider Family Medicine
DX: Z12.31 Encounter for screening mammogram for malignant neoplasm of breast (principal)
CPT/HCPCS: 77063; 77067

== ENCOUNTER → 2022-12-22 06:55 | Outpatient (CLI) | payer MEDICARE, SELFPAY ==
[2022-12-22 08:23] LABS: Add Manual Diff / Slide Review NO; Basophils Absolute Auto 100 /uL (0-100); Basophils Percent Auto 1.3 % (0-2); Eosinophils Absolute Auto 200 /uL (0-450); Eosinophils Percent Auto 3.9 % (2-4); Hematocrit 35.2 % (36-46); Hemoglobin 11.6 g/dL (12.0-16.0); Lymphocytes Absolute Auto 1300 /uL (1100-4500); Lymphocytes Percent Auto 23.8 % (25-40); Mean Corpuscular Hemoglobin 25.8 PG (26-34); Mean Corpuscular Volume 78.3 fL (80-100); Monocytes Absolute Auto 400 /uL (0-900); Monocytes Percent Auto 7.7 % (3-14); Neutrophils Absolute Auto 3500 /uL (1500-7000); Neutrophils Percent Auto 63.3 % (50-75); Platelet Count 290 X10^3/uL (150-400); Red Cell Distribution Width 14.3 % (11.6-14.8); White Blood Cell Count 5.5 X10^3/uL (4.5-11.0)
[2022-12-22 08:30] LABS: Hemoglobin A1C% w Est Avg Glu 5.1 % (4.0-6.0)
[2022-12-22 08:42] LABS: Erythrocyte Sedimentation Rate 8 MM/HR (0-20)
[2022-12-22 09:02] LABS: Alanine Aminotransferase 16 IU/L (<35); Albumin 4.4 g/dL (3.5-5.0); Albumin Globulin Ratio 1.4 (1.0-2.8); Alkaline Phosphatase 74 U/L (38-126); Aspartate Aminotransferase 21 IU/L (14-36); BUN Creatinine Ratio 15.6 (6-22); Bilirubin Total 2.7 mg/dL (0.2-1.3); Blood Urea Nitrogen 10 mg/dL (7-17); C-Reactive Protein Quant < 0.5 mg/dL (<1.0); Calcium 9.1 mg/dL (8.4-10.2); Carbon Dioxide 25 mmol/L (22-32); Chloride 103 mmol/L (98-107); Cholesterol 200 mg/dL (140-199); Estimated Glomerular Filt Rate > 60 mL/min (>60); Globulin 3.1 g/dL (1.7-4.1); Glucose 86 mg/dL (80-110); HDL Cholesterol 76 mg/dL (40-60); HEMOLYSIS < 15 (0-50); LDL Cholesterol Calculated 92 mg/dL (<100); Magnesium 1.9 mg/dL (1.6-2.3); Potassium 4.1 mmol/L (3.4-5.1); Sodium 138 mmol/L (137-145); Total Protein 7.5 g/dL (6.3-8.2); Triglycerides 162 mg/dL (35-150)
[2022-12-22 09:27] LABS: TSH w/ Reflex to FT4 2.16 uIU/mL (0.47-4.68)
[2022-12-22 09:43] LABS: Vitamin B12 627 pg/mL (239-931)
[2022-12-24 15:36] LABS: SS A Ro Sjogrens Antibody < 0.2 AI (0.0-0.9); SS B La Sjogrens Antibody < 0.2 AI (0.0-0.9)
[2022-12-25 17:07] LABS: HEMOLYSIS < 15 (0-50); Iron 59 ug/dL (37-170)
[2022-12-25 17:18] LABS: Percent Iron Saturation 10 % (15-50); Total Iron Binding Capacity 599 ug/dL (265-497); Transferrin 397 mg/dL (206-381)
[2022-12-25 17:44] LABS: Ferritin 7 ng/mL (11-264)
[2022-12-26 20:07] LABS: ANA Screen, IFA Negative (.)
== END ==
PROVIDERS: Family Provider Family Medicine; PCP Family Medicine; Referring Provider Family Medicine; Visit Provider Family Medicine
DX: R53.83 Other fatigue (principal); I73.00 Raynaud's syndrome without gangrene; Z13.220 Encounter for screening for lipoid disorders; E53.8 Deficiency of other specified B group vitamins; D64.9 Anemia, unspecified
CPT/HCPCS: 36415; 80053; 80061; 82607; 82728; 83036; 83540; 83550; 83735; 84443; 85025; 85651; 86038; 86140; 86235

== ENCOUNTER 2023-01-19 01:40 | Emergency (ER) | payer MEDICARE, SELFPAY ==
[2023-01-19] VITALS (9 sets, daily range): BP systolic 111–136; BP diastolic 65–74; PULSE 82–108; RESP 12–19; TEMP 36.9; O2SAT 97–100; BMI 20.5
[2023-01-19 02:51] LABS: Add Manual Diff / Slide Review NO; Basophils Absolute Auto 0 /uL (0-100); Basophils Percent Auto 0.2 % (0-2); Eosinophils Absolute Auto 100 /uL (0-450); Eosinophils Percent Auto 0.4 % (2-4); Hematocrit 39.5 % (36-46); Hemoglobin 12.9 g/dL (12.0-16.0); Lymphocytes Absolute Auto 700 /uL (1100-4500); Mean Corpuscular HGB Conc 32.5 % (30-36); Mean Corpuscular Hemoglobin 25.9 PG (26-34); Mean Corpuscular Volume 79.5 fL (80-100); Monocytes Absolute Auto 1000 /uL (0-900); Monocytes Percent Auto 8.4 % (3-14); Neutrophils Absolute Auto 10000 /uL (1500-7000); Platelet Count 312 X10^3/uL (150-400); Red Blood Cell Count 4.97 X10^6/uL (4.0-5.2); Red Cell Distribution Width 14.9 % (11.6-14.8); White Blood Cell Count 11.8 X10^3/uL (4.5-11.0)
[2023-01-19 03:00] LABS: Alanine Aminotransferase 20 IU/L (<35); Albumin 4.9 g/dL (3.5-5.0); Albumin Globulin Ratio 1.5 (1.0-2.8); Alkaline Phosphatase 103 U/L (38-126); Aspartate Aminotransferase 23 IU/L (14-36); BUN Creatinine Ratio 17.4 (6-22); Bilirubin Total 3.3 mg/dL (0.2-1.3); Blood Urea Nitrogen 12 mg/dL (7-17); Calcium 9.5 mg/dL (8.4-10.2); Carbon Dioxide 25 mmol/L (22-32); Chloride 100 mmol/L (98-107); Estimated Glomerular Filt Rate > 60 mL/min (>60); Globulin 3.3 g/dL (1.7-4.1); Glucose 136 mg/dL (80-110); HEMOLYSIS < 15 (0-50); Lipase 97 U/L (23-300); Potassium 3.7 mmol/L (3.4-5.1); Sodium 137 mmol/L (137-145); Total Protein 8.2 g/dL (6.3-8.2)
--- NOTE | 2023-01-19 03:49 | DI.CT.S_ITS ---
PROCEDURE: CT ABDOMEN PELVIS W CON INDICATIONS: RLQ pain TECHNIQUE: After the administration of intravenous contrast, axial sections acquired from the lung bases to the pubic symphysis. Coronal and sagittal reformats were performed. For radiation dose reduction, the following was used: automated exposure control, adjustment of mA and/or kV according to patient size. COMPARISON: None. FINDINGS: Image quality: Excellent. Lung bases: Unremarkable. Heart: No significant findings. ABDOMEN: Liver: Unremarkable. Gallbladder: Gallbladder is distended and has multiple tiny stones. Biliary ducts: Unremarkable. Pancreas: Unremarkable. Spleen: Unremarkable. Adrenal Glands: Unremarkable. Kidneys and Ureters: Unremarkable. Stomach and Bowel: Previous partial colonic resection anastomosis between the colon in the distal ileum. Just proximal to the anastomosis there is a loop of ileum is diffusely narrowed with wall edema. Colonic contents are mostly liquid. Proximal to this disease loop of small bowel, the small bowel loops are not dilated at present. Multiple air-fluid levels are noted in small and large bowel. Peritoneum: No abnormal intraperitoneal fluid. There is mild to moderate pelvic ascites. Ventral Wall: No hernias. Abdominal Nodes: No retroperitoneal or mesenteric adenopathy by size criteria. Vessels: Aorta and inferior vena cava are normal in size. PELVIS: Pelvic Organs: Unremarkable. Bladder: Unremarkable. Pelvic Nodes: No enlarged lymph nodes. Miscellaneous: No hernias are seen. Bones: Mild lumbar degenerative change. No lytic or blastic bony lesions. No compression fractures. IMPRESSION: 1. Remote partial colectomy and anastomosis with the distal ileum. 2. The loop of distal ileum which enters the colon is narrowed with diffuse wall edema and some stranding in the adjacent fat. Differential diagnosis includes inflammatory versus infectious ileitis. 3. Probable associated ileus pattern. 4. Moderate pelvic ascites. 5. Distended gallbladder, cholelithiasis. Comment: Final report is concordant with preliminary interpretation provided by [facility]. Dictated by: Obie Cruz M.D. on 01/19/2023 at 8:06 Approved by: Obie Cruz M.D. on 01/19/2023 at 8:13
--- NOTE | 2023-01-19 03:55 | ED_ITS ---
HPI - Abdominal Pain General Chief Complaint: Abdominal Pain Stated Complaint: abd pain, vomiting Time Seen by Provider: 01/19/23 03:48 Source: patient Mode of arrival: Ambulatory Limitations: no limitations History of Present Illness HPI narrative: This is a 67-year-old female with complaint of abdominal pain, vomiting patient has had pain for about a week. No fevers. She is had nausea and vomiting once or twice last 2 days. No diarrhea. She has not had a bowel movement since yesterday. States has not passed gas for about a day. She states hurts mostly in the right lower quadrant radiates a little bit more towards the back but started in the front for the 1st week. She denies dysuria, urgency or kane quency. No black or bloody stools. Patient states she is had history of Crohn's, she is not on medication for it, she takes an aspirin daily, bupropion, B12 shots monthly. She had 1988 bowel resection in 1991. Allergic to sulfa and penicillin. No tobacco, alcohol is 1-2 a week. No illicit. Related Data Home Medications Medication Instructions Recorded Confirmed aspirin 81 mg tablet,delayed 81 mg PO DAILY 07/17/21 01/14/23 release biotin 10 mg tablet 10 mg PO DAILY 07/17/21 01/14/23 cholecalciferol (vitamin D3) PO 07/17/21 01/14/23 Previous Rx's Medication Instructions Recorded B-D #9651 SYR/NDL 1ML 25GX5/8 #12 ea 10/01/22 bupropion HCl 75 mg tablet See Rx Instructions .Route 12/26/22 .COMPLEX #90 tabs cyanocobalamin (vitamin B-12) See Rx Instructions .Route 01/02/23 1,000 mcg/mL injection solution .COMPLEX #3 mL valacyclovir 1 gram tablet 1,000 mg PO TID 7 days #21 tabs 01/14/23 prednisone 20 mg tablet 40 mg PO DAILY #8 tabs 01/19/23 Allergies Allergy/AdvReac Type Severity Reaction Status Date / Time Penicillins [PENICILLINS] Allergy Unknown Hives Verified 01/14/23 09:50 Sulfa (Sulfonamide Allergy Unknown Hives Verified 01/14/23 09:50 Antibiotics) [SULFA (SULFONAMIDE ANTIBIOTICS)] Review of Systems Review of Systems ROS Unobtainable: All systems reviewed & are unremarkable except as noted in HPI and below Patient History Medical History Anxiety Atrophic vaginitis Calcium oxalate stones Chronic cough Crohn's disease (1971) H/O nephrolithotomy with removal of calculi Hearing loss (2008) Inflammatory bowel disease Kidney stones (1999) Peptic ulcer disease Plantar warts Psoriasis Renal calculi Shoulder pain (1994) Tinnitus Surgical History Anesthesia complication H/O lithotripsy History of bowel resection (1992) History of bowel resection History of History of extraction of renal calculus History of tubal ligation Status post delivery (1987) Status post tubal ligation (1989) Family History Mother Age: 92 Heart valve disease Diabetes mellitus Cancer Hyperlipidemia Hypertension Brother Cancer of kidney Father Alzheimer's disease Hearing impairment Hyperlipidemia Hypertension Social History marital status: household members: spouse Smoking Status: Former smoker alcohol intake: current caffeine: Yes Smoking Status: Former smoker alcohol intake frequency: a few times a week Substance Use Type: does not use Exam Narrative Exam Narrative: GENERAL: Alert and oriented x three, mild distress. HEENT: Head normocephalic, atraumatic, EOMI, pupils reactive, face symmetric, moist mucous membranes NECK: Supple, full range of motion CARDIOVASCULAR: Regular rate and rhythm without murmurs, rubs or gallops. RESPIRATORY: Breath sounds equal bilaterally, no wheezes rales or rhonchi. ABDOMEN: Soft, generalized tenderness. Normoactive bowel sounds all 4 quadrants. No guarding or rebound, rigidity, no mass : No CVA tenderness EXTREMITIES: Normal range of motion, no clubbing or edema. Neurovascularly intact NEUROLOGICAL: Cranial nerves II through XII grossly intact. Moving all extremities SKIN: Warm, dry, no petechiae, no rashes or lesions. Initial Vital Signs Initial Vital Signs: Vital Signs Temperature 98.5 F 01/19/23 02:21 Pulse Rate 108 H 01/19/23 02:21 Respiratory Rate 16 01/19/23 02:21 Blood Pressure 136/65 01/19/23 02:21 Pulse Oximetry 99 01/19/23 02:21 Oxygen Delivery Method 01/19/23 02:21 Course Orders Ordered: ED Orders 01/19/23 02:35 Complete Blood Count AUTO DIFF Stat Comprehensive Metabolic Panel Stat Lipase Stat 01/19/23 02:40 Urine Culture Stat Urine Microscopic Stat 01/19/23 03:49 CT abdomen pelvis w con Stat Discontinued Medications Prednisone (Prednisone 20 Mg Tablet) 40 mg PO NOW ONE Stop: 01/19/23 05:56 Last Admin: 01/19/23 06:12 Dose: 40 mg Documented By: JACKSON Vital Signs Vital signs: Vital Signs - 8 hr 01/19/23 02:21 01/19/23 03:03 01/19/23 03:03 Temperature 98.5 F Pulse Rate 108 H 91 H Respiratory Rate 16 Blood Pressure 136/65 115/74 Pulse Oximetry 99 100 Oxygen Delivery Method Room Air Room Air 01/19/23 03:30 01/19/23 03:30 01/19/23 04:04 Temperature Pulse Rate 85 91 H Respiratory Rate 19 Blood Pressure 111/74 Pulse Oximetry 97 100 Oxygen Delivery Method Room Air 01/19/23 04:30 01/19/23 05:00 01/19/23 05:30 Temperature Pulse Rate 87 85 82 Respiratory Rate 17 19 15 Blood Pressure Pulse Oximetry 97 100 99 Oxygen Delivery Method Room Air Room Air 01/19/23 06:00 01/19/23 06:04 01/19/23 06:04 Temperature Pulse Rate 83 82 Respiratory Rate 12 19 Blood Pressure 123/74 Pulse Oximetry 99 99 Oxygen Delivery Method MDM - Abdominal Pain Lab Data 01/19/23 02:35 01/19/23 02:35 Labs: Lab Results 01/19/23 01/19/23 01/19/23 Range/Units 02:35 02:35 02:40 WBC 11.8 H (4.5-11.0) X10^3/uL RBC 4.97 (4.0-5.2) X10^6/uL Hgb 12.9 (12.0-16.0) g/dL Hct 39.5 (36-46) % MCV 79.5 L (80-100) fL MCH 25.9 L (26-34) PG MCHC 32.5 (30-36) % RDW 14.9 H (11.6-14.8) % Plt Count 312 (150-400) X10^3/uL Neut % (Auto) 85.0 H (50-75) % Lymph % (Auto) 6.0 L (25-40) % [place] % (Auto) 8.4 (3-14) % Eos % (Auto) 0.4 L (2-4) % Baso % (Auto) 0.2 (0-2) % Neut # (Auto) 53107 H (8395-6926) /uL Lymph # (Auto) 700 L (9113-9682) /uL [place] # (Auto) 1000 H (0-900) /uL Eos # (Auto) 100 (0-450) /uL Baso # (Auto) 0 (0-100) /uL Sodium 137 (137-145) mmol/L Potassium 3.7 (3.4-5.1) mmol/L Chloride 100 (98-107) mmol/L Carbon Dioxide 25 (22-32) mmol/L BUN 12 (7-17) mg/dL Creatinine 0.69 (0.52-1.04) mg/dL Estimated GFR > 60 (>60) mL/min BUN/Creatinine Ratio 17.4 (6-22) Glucose 136 H (80-110) mg/dL Calcium 9.5 (8.4-10.2) mg/dL Total Bilirubin 3.3 H (0.2-1.3) mg/dL AST 23 (14-36) IU/L ALT 20 (<35) IU/L Alkaline Phosphatase 103 (38-126) U/L Total Protein 8.2 (6.3-8.2) g/dL Albumin 4.9 (3.5-5.0) g/dL Globulin 3.3 (1.7-4.1) g/dL Albumin/Globulin Ratio 1.5 (1.0-2.8) Lipase 97 (23-300) U/L Urine RBC 0-1/hpf (0-5/HPF) Urine WBC None seen (0-5/HPF) Ur Squamous Epith Cells 0-1 /hpf (0-5/HPF) Urine Bacteria None seen (None) Micro UA Comment * Point of care testing: Urine Dip Bedside Urine Glucose Negative Bedside Urine Bilirubin - Negative Bedside Urine Ketone - Negative Urine Specific [place] 1.030 Bedside Urine Occult Blood +/- Bedside Urine pH 6.0 Bedside Urine Protein + 30 Bedside Urine Urobilinogen - Negative Bedside Urine Nitrite - Negative Bedside Urine Leukocytes - Negative Esterase Imaging Data CT scan - abdomen/pelvis: Radiologist's Impression: Slight fatty infiltration of the liver. Cholelithiasis and mildly distended gallbladder. Couple small calcifications pancreatic head, can not exclude slight chronic pancreatitis. Non peripancreatic stranding. Slight prominence urinary bladder wall but collapsed. Mild low attenuation ascites some of which mildly loculated and anterior cul-de-sac with a right hemicolectomy with enterocolic anastomosis. Thickened small bowel loop and an anastomosis suggesting inflammatory/infectious process. Slight stranding of mesentery and lower abdominal pelvis suggesting maybe postsurgical change. Upper normal diameter colon with air-fluid levels. Mild distention proximal transverse colon anastomosis. Mild distention of few small bowel loops particularly right abdomen. Few air-fluid levels and small and large bowel. No pneumoperitoneum or walled abscess. MDM Narrative Medical decision making narrative: This is a 67-year-old female with complaint of abdominal pain. Right lower quadrant. She does have her appendix stone place. She has a history of Crohn's has had a prior resection states no bowel movements for 24 hours with no flatus and vomiting. Patient has mild white count at 11, slightly microcytic but not anemic. Leftward shift. Patient's bilirubin is 3.3 normal LFTs otherwise. Electrolytes renal function normal with a glucose of 136. Urine is negative. Patient's CT shows some fatty infiltration cholelithiasis she has generalized tenderness but nonspecific it is actually more lower. She does have some stranding in the mesentery lower abdominal pelvis as well as thickened bowel loops at the anastomosis and some air-fluid levels small and large bowel. Patient has not had fevers she has not generalized tenderness she states she is vomited twice yesterday and today. She states she has not been passing gas or having a bowel movement for 24 hours. Discussed observation patient would prefer to try to return and do bowel rest. Discussed if she can tolerate oral fluids probably put her on a steroid with a history of Crohn's see if this improves her symptoms. Patient attempted oral challenge here in the department no vomiting no nausea, patient states no increased abdominal pain. She wishes to return home we reviewed her imaging. She notes she was on high-dose steroids for like months 100 mg of prednisone for several months and was hospitalized for a month in the past. Will do a short course of steroids to see if this improves, bowel rest clear liquids only with strict return precautions. Discharge Plan Departure Patient Disposition: Home Clinical Impression: Colitis, Gallstones Activity Restrictions/Additional Instructions: Follow-up for recheck with your rn spine in the next several days if your symptoms are not totally improved. Clear liquid diet if you are not have any vomiting and your starting to have bowel movements and passing gas regularly you can advance your diet Your imaging shows inflammation at the connection where hemicolectomy was return. You can take steroids once daily until gone. You can take Tylenol up to a 1000 mg every 6 hours as needed for pain. Prescription for steroids sent to [facility] in [place] As discussed you have elected to return home, if your symptoms are worsening you are having fevers, persistent vomiting increasing abdominal pain, if you are not passing gas and are still not having stool after 24-48 hours or any other new or worsening symptoms please return Prescriptions: New prednisone 20 mg tablet 40 mg PO DAILY Qty: 8 0RF No Action valacyclovir 1 gram tablet 1,000 mg PO TID 7 Days Qty: 21 0RF (DME) B-D #9651 SYR/NDL 1ML 25GX5/8 See Rx Instructions .Route .MEDSUPPLY Qty: 12 0RF Rx Instructions: please check blood sugar while fasting daily bupropion HCl 75 mg tablet See Rx Instructions .ROUTE .COMPLEX Qty: 90 0RF Dose Instruction: TAKE 1 TABLET BY MOUTH DAILY Rx Instructions: TAKE 1 TABLET BY MOUTH DAILY cyanocobalamin (vitamin B-12) 1,000 mcg/mL solution See Rx Instructions .ROUTE .COMPLEX Qty: 3 0RF Dose Instruction: INJECT 1 ML (1000 MCG) INTRAMUSCULARLY EVERY MONTH Rx Instructions: INJECT 1 ML (1000 MCG) INTRAMUSCULARLY EVERY MONTH biotin 10 mg tablet 10 mg PO DAILY cholecalciferol (vitamin D3) PO aspirin 81 mg tablet,delayed release (DR/EC) 81 mg PO DAILY Referrals: Vanessa Aguilar MD [Primary Care Provider] - Stand Alone Forms: Patient Portal/API
[2023-01-19 04:09] LABS: RBC Urine 0-1/HPF (0-5/HPF); Squamous Epithelial Cell Urine 0-1 /HPF (0-5/HPF); WBC Urine None Seen (0-5/HPF)
[2023-01-19 04:10] LABS: Bacteria Urine None Seen
[2023-01-19] MEDS: predniSONE 20 MG TABLET 40 MG PO (06:12)
== END 2023-01-19 06:14 | disposition home or self-care (01) ==
PROVIDERS: Emergency Provider Emergency Medicine; Family Provider Family Medicine; PCP Family Medicine
DX: K80.20 Calculus of gallbladder without cholecystitis without obstruction (principal); K52.9 Noninfective gastroenteritis and colitis, unspecified; R11.10 Vomiting, unspecified
CPT/HCPCS: 36415; 74177; 80053; 81003; 81015; 83690; 85025; 87086; 99284; Q9967

== ENCOUNTER 2023-02-02 06:59 | Day surgery (SDC) | payer MEDICARE, SELFPAY ==
--- NOTE | 2023-02-02 | PATH_ITS ---
[facility] Accession Number: [id number] No. of containers..03 Tissue . 01 Material submitted: . PART A: colon - ANASTOMOSIS BIOPSY PART B: colon - RIGHT COLON PART C: colon - LEFT COLON . 01 Diagnosis: A. Anastomosis, Biopsy: Active enteritis with erosion; please see comment. Negative for granulomas, dysplasia or malignancy. . B-C: Right, Left Colon, Biopsies: Colonic mucosa with no significant diagnostic abnormality. Negative for active inflammation, granulomas, dysplasia, and malignancy. [facility] 02/06/2023 0857 Local . 01 Comment: The findings in the anastomosis biopsy are consistent with the clinical history of Crohn's disease. . 01 Electronically signed: . Russel Louis MD, PhD, Pathologist NPI- [id number] . 01 Gross description: . Part A: ANASTOMOSIS BIOPSY: Received in formalin are multiple fragment(s) of hernandez, soft tissue measuring 1.0 x 0.2 x 0.1 cm submitted entirely in 1 cassette(s) Part B: RIGHT COLON: Received in formalin are 2 fragment(s) of hernandez, soft tissue measuring 0.1 x 0.1 x 0.1 cm to 0.1 x 0.1 x 0.1 cm submitted entirely in 1 cassette(s) Part C: LEFT COLON: Received in formalin is 1 fragment(s) of hernandez, soft tissue measuring 0.3 x 0.3 x 0.1 cm submitted entirely in 1 cassette(s) /CPE 02/03/2023 0754 Local . 01 Pathologist provided ICD-10: K50.812 . 01 CPT . 290368, [id number], [id number] Specimen Comment: A courtesy copy of this report has been sent to [phone] Performed at: 01 [facility] [address], [place], [place] [id number] MD Romeo Hatch MD Phone: [phone]
[2023-02-02 07:22] VITALS: BP 174/88; PULSE 84; RESP 18; TEMP 37.1; O2SAT 99; BMI 18.9
--- NOTE | 2023-02-02 08:00 | PM.HP.1 ---
History of Present Illness History of Present Illness Date Patient Seen: 02/02/23 Time Patient Seen: 08:01 Chief complaint: Dx Colonoscopy w/poss bx Narrative: Here for colonoscopy. Still on prednisone 30 mg. No further right lower quadrant pain. Updated colonoscopy is pursued today to evaluate for the need for more advanced Crohn's therapies. Patient History Medical History Anxiety Atrophic vaginitis Calcium oxalate stones Chronic cough Crohn's disease (1971) H/O nephrolithotomy with removal of calculi Hearing loss (2008) Inflammatory bowel disease Kidney stones (1999) Peptic ulcer disease Plantar warts Psoriasis Renal calculi Shoulder pain (1994) Tinnitus Surgical History Anesthesia complication H/O lithotripsy History of bowel resection (1992) History of bowel resection History of History of extraction of renal calculus History of tubal ligation Status post delivery (1987) Status post tubal ligation (1989) Family & Social History Family History Mother Age: 92 Heart valve disease Diabetes mellitus Cancer Hyperlipidemia Hypertension Brother Cancer of kidney Father Alzheimer's disease Hearing impairment Hyperlipidemia Hypertension Social History: household members spouse Tobacco & Substance use: Smoking Status Former smoker alcohol intake current alcohol intake frequency a few times a week Substance Use Type does not use Meds Home Medications and Allergies Home Medications Medication Instructions Recorded Confirmed Type aspirin 81 mg tablet,delayed 81 mg PO DAILY 07/17/21 02/02/23 History release biotin 10 mg tablet 10 mg PO DAILY 07/17/21 02/02/23 History cholecalciferol (vitamin D3) 1 softgel PO 3XD 07/17/21 02/02/23 History B-D #9651 SYR/NDL 1ML 25GX5/8 #12 ea 10/01/22 01/14/23 Rx bupropion HCl 75 mg tablet See Rx Instructions .Route 12/26/22 02/02/23 Rx .COMPLEX #90 tabs cyanocobalamin (vitamin B-12) See Rx Instructions .Route 01/02/23 02/02/23 Rx 1,000 mcg/mL injection solution .COMPLEX #3 mL prednisone 20 mg tablet 30 mg PO DAILY 02/02/23 02/02/23 History Allergies Allergy/AdvReac Type Severity Reaction Status Date / Time Penicillins [PENICILLINS] Allergy Unknown Hives Verified 02/02/23 07:33 Sulfa (Sulfonamide Allergy Unknown Hives Verified 02/02/23 07:33 Antibiotics) [SULFA (SULFONAMIDE ANTIBIOTICS)] Review of Systems Review of Systems ROS: Yes All systems reviewed with the patient and are negative except as otherwise documented Exam Vital Signs (past 8 hours): - 02/02/23 07:22 02/02/23 07:22 Temperature 98.8 F Pulse Rate 84 Respiratory Rate 18 Blood Pressure 174/88 H Pulse Oximetry 99 Oxygen Delivery Method Room Air Room Air Oxygen Delivery Method Room Air Const General: cooperative HENMT Head: normal to inspection Eyes General: appearance normal, both eyes and all related structures Neck Neck: normal visual inspection Chest Chest: normal inspection of the chest Resp Effort & Inspection: normal respiratory effort Cardio Rate: regular rate GI Inspection: normal to inspection Skin General: no rashes or lesions noted Neuro General: patient alert and patient awake Extrem General: normal to inspection and no pedal edema Psych Appearance: grossly normal Assessment & Plan Assessment & Plan narrative: 67-year-old female status post right ileo colectomy for Crohn's updated colonoscopy is pursued today. Time Spent With Patient Critical Care time: I spent a total of [] minutes of critical care time on this patient's care today; this time is exclusive of procedural time.
[2023-02-02] MEDS: LACTATED RINGERS 1,000 ML 84 ML IV (08:03)
--- NOTE | 2023-02-02 08:05 | PM.PREOP ---
Pre-operative Note Interval Note History & Physical reviewed/Exam performed by Physician: Yes Changes to H&P: Yes ASA Class (for procedural sedation): II
--- NOTE | 2023-02-02 08:35 | PM.OP.EGD ---
Operative Date/Time/Diagnoses Date of procedure: 02/02/23 Time of procedure: 08:35 Pre-op diagnosis: Crohn's status post right ileo colectomy Post-op diagnosis: same Procedure & Clinicians Study performed: Colonoscopy with biopsies Same procedure as scheduled: Yes Indications: History of Crohn's with a right ileocolectomy. Abnormal imaging. Right lower quadrant pain. Resolved. Surgeon: Castro Klein Procedure Notes SCOAP/Timeout: Done Procedure in detail: After the risks and benefits were explained, written and verbal informed consent was obtained. The patient was brought into the procedure room and placed into the left lateral decubitus position. Please see anesthesia notes for sedation details. Digital rectal examination was accomplished. The scope was introduced into the patient and advanced under direct visualization to the cecum as identified by the appendiceal orifice and ileocecal valve. The scope was slowly withdrawn to carefully examine the mucosa for any defects or lesions. Comprehensive imaging was accomplished throughout the rectum including the dentate line. The colon was decompressed, the scope was then removed from the patient who tolerated the procedure well. Bowel prep fair Pediatric colonoscope Sedation minutes: 23 Complications: none Impression: The patient had a very tortuous colon. Somewhat redundant. I did not see any evidence of procto colitis throughout. The right hemicolectomy anastomosis was identified but I could not gain access up into the terminal ileum proper. There seemed to be inflammation and ulceration at the opening up into the wei terminal ileum. Biopsies were taken from this area and labeled anastomosis. I additionally took separate right and left colon biopsies for histologic contrast. No significant polyps or mass lesions identified throughout. Grade 3 to grade 4 hemorrhoids were noted on digital exam. Endoscopic diagnosis 1. Ileocolonic anastomotic ulceration and inflammation 2. Otherwise visually normal colonic mucosal exam 3. Tortuous colon 4. Grade 3 and grade 4 hemorrhoids. Post-procedure Plan for aftercare: 1. Await histopathology. 2. Continue prednisone taper and follow up with Dr. Bowden to discuss further pharmacotherapy. Disposition: PACU
[2023-02-02 08:37] VITALS: BP 94/60; PULSE 76; RESP 17; TEMP 36.1; O2SAT 100
[2023-02-02 08:44] VITALS: BP 107/62; PULSE 72; RESP 16; TEMP 36.1; O2SAT 100
[2023-02-02 08:49] VITALS: BP 111/70; PULSE 81; RESP 13; TEMP 36.2; O2SAT 100
[2023-02-02 08:55] VITALS: BP 123/59; PULSE 69; RESP 13; TEMP 36.2; O2SAT 100
[2023-02-02 09:01] VITALS: BP 118/71; PULSE 68; RESP 17; TEMP 36.1; O2SAT 100
== END 2023-02-02 10:04 | disposition home or self-care (01) ==
PROVIDERS: Family Provider Family Medicine; PCP Family Medicine; Referring Provider Internal Medicine Gastroenterology; Visit Provider Internal Medicine Gastroenterology
PROC: 0DJD8ZZ Inspection of Lower Intestinal Tract, Via Natural or Artificial Opening Endoscopic (ICD-10-PCS; CPT 45378; principal; 2023-02-02 08:00)
DX: K50.00 Crohn's disease of small intestine without complications (principal); Z90.49 Acquired absence of other specified parts of digestive tract; K64.2 Third degree hemorrhoids; K64.3 Fourth degree hemorrhoids; K63.3 Ulcer of intestine
CPT/HCPCS: 45380; J2704

== ENCOUNTER → 2023-06-29 10:42 | Outpatient (CLI) | payer MEDICARE, SELFPAY ==
--- NOTE | 2023-06-29 11:12 | DI.DEXA.S_ITS ---
Bone Density Report Name: TIM QUICK Age: 67 Sex: Female Ethnicity: White Date of : 1955 Indication: osteopenia; Referring Provider: MELISSA SHELDON Study: Bone densitometry was performed. Exam Date: June 29, 2023 Accession number: [id number] Bone Density: Region BMD T-score Z-score Classification AP Spine(L1-L4) 0.775 -2.5 -0.7 Osteoporosis Femoral Neck (Left) 0.588 -2.3 -0.8 Osteopenia Total Hip (Left) 0.651 -2.4 -1.1 Osteopenia Femoral Neck (Right) 0.588 -2.4 -0.8 Osteopenia Total Hip (Right) 0.676 -2.2 -0.9 Osteopenia Total Hip Mean 0.664 -2.3 -1.0 Osteopenia World Health Organization criteria for BMD impression classify patients as: Normal (T-score at or above -1.0), Osteopenia (T-score between -1.0 and -2.5), or Osteoporosis (T-score at or below -2.5). 10-year Fracture Risk: FRAX not reported because: Some T-score for Spine Total or Hip Total or Femoral Neck at or below -2.5 Previous Exams: -- Region Exam Age BMD T-score BMD Change BMD Change Date g/cm2 vs Baseline vs Previous -- AP Spine (L1-L4) 06/29/2023 67 0.775 -2.5 -0.023 (-2.8%)# -0.023 (-2.8%)# 03/25/2019 63 0.798 -2.3 Total Hip(Left) 06/29/2023 67 0.651 -2.4 -0.083 (-11.3%)# -0.083 (-11.3%)# 03/25/2019 63 0.734 -1.7 Total Hip(Right) 06/29/2023 67 0.676 -2.2 -0.069 (-9.2%)# -0.069 (-9.2%)# 03/25/2019 63 0.745 -1.6 -- *Denotes significance at 95% confidence level, LSC for AP Spine = 0.022 g/cm2, LSC for Total Hip = 0.027 g/cm2 # Denotes dissimilar scan types or analysis methods Impression: The patient has osteoporosis, based on the Total Spine T-score. No significant bone loss was observed. Discussion: INCREASED RISK OF FRACTURE. BONE DENSITY IS UNDESIRABLY LOW AT ONE OR MORE SKELETAL SITES, CONSISTENT WITH POSTMENOPAUSAL OSTEOPOROSIS. This patient's lowest T-score meets the World Health Organization's (WHO) criteria for osteoporosis at one or more sites (T-score -2.5 or below). In untreated patients, the risk of osteoporotic fracture increases approximately two-fold for each 1.0 SD decrease in T-score. Low bone density is not the only risk factor for fracture; also consider factors such as patient's age, frailty or poor health, risk of falling, risk of injury, previous osteoporotic fracture, family history of osteoporosis, cigarette smoking, low body weight, etc. Not everyone with low bone mineral density has osteoporosis; osteomalacia and other metabolic bone disorders should also be considered. Patients who have osteoporosis should be evaluated for specific diseases and conditions (secondary causes) that may cause or contribute to bone loss. The [place] [employer] (AACE) and National Osteoporosis Foundation (NOF) recommend pharmacologic intervention for all postmenopausal women whose T-score is in this range. The patient should follow a healthful lifestyle (good nutrition with adequate calcium and vitamin D, and appropriate weight-bearing exercise). Follow-Up: Consider a repeat BMD and Vertebral Fracture Assessment (VFA) exam in 2 years or sooner if medically necessary, to reassess this patient's status. Reported by: INDIRA RAMÍREZ M.D on 06/29/2023 11:20:00 AM.
== END ==
PROVIDERS: Family Provider Family Medicine; PCP Family Medicine; Referring Provider Family Medicine; Visit Provider Family Medicine
DX: M81.0 Age-related osteoporosis without current pathological fracture (principal)
CPT/HCPCS: 77080

== ENCOUNTER → 2023-07-08 06:43 | Outpatient (CLI) | payer MEDICARE, SELFPAY ==
--- NOTE | 2023-07-08 06:44 | DI.CT.S_ITS ---
PROCEDURE: CT KIDNEY URETER BLADDER (KUB) INDICATIONS: Kidney stones TECHNIQUE: Axial sections were acquired from the lung bases to the pubic symphysis. Coronal and sagittal reformats were performed. For radiation dose reduction, the following was used: automated exposure control, adjustment of mA and/or kV according to patient size. COMPARISON: CT abdomen pelvis 01/19/2023. FINDINGS: Image quality: Excellent. Lung bases: Unremarkable. Heart: No significant findings. URINARY: Right Kidney: No nephrolithiasis or hydronephrosis. Right Ureter: No hydroureter Left Kidney: No nephrolithiasis or hydronephrosis. Left Ureter: No hydroureter. Bladder: Normal wall thickness. No stones. ABDOMEN: Liver: Unremarkable. Gallbladder: Cholelithiasis, as before. No CT evidence of acute cholecystitis. Biliary ducts: Unremarkable. Pancreas: Unremarkable. Spleen: Unremarkable. Adrenal Glands: Unremarkable. Stomach and Bowel: Status post partial colonic resection with patent anastomosis in the right upper quadrant. No bowel obstruction. Peritoneum: No abnormal intraperitoneal fluid. No free air. Ventral Wall: No hernia. Abdominal Nodes: No enlarged retroperitoneal or mesenteric lymph nodes. Vessels: Aorta and inferior vena cava are normal in size. PELVIS: Pelvic Organs: Unremarkable. Pelvic Nodes: Unremarkable. Miscellaneous: No inguinal hernias are seen. Bones: No acute or suspicious osseous abnormality. Mild degenerative changes of the spine. IMPRESSION: 1. No nephrolithiasis or hydronephrosis as clinically queried. 2. Cholelithiasis without CT evidence of acute cholecystitis. Approved by: Lynn Tipton M.D. on 07/08/2023 at 17:29
== END ==
PROVIDERS: Family Provider Family Medicine; PCP Family Medicine; Referring Provider Urology; Visit Provider Urology
DX: N20.0 Calculus of kidney (principal); K80.20 Calculus of gallbladder without cholecystitis without obstruction
CPT/HCPCS: 74176